=== PATIENT | male | born 1960 | race Caucasian/White ===

== ENCOUNTER 2025-05-24 12:30 | Inpatient (IN) | payer MEDICAID, OTHER ==
[~2025-05-24] VITALS: Ht 185.4 cm; Wt 103.0 kg
--- NOTE | 2025-05-24 12:51 | ECG ---
[facility] Test Date: 2025-05-24 Test Time: 12:44:55 Pat Name: KOKO LAGOS Department: ED Room: 0217T Gender: M Car Repossessor: MYLES : 1960 Requested By: COOKIE SAM Order Number: [id number] Reading MD: Juan Prater Measurements Intervals Mcdonald Rate: 105 P: 42 WI: 129 QRS: -15 QRSD: 111 T: 109 QT: 364 QTc: 482 Interpretive Statements Sinus tachycardia Multiple ventricular premature complexes Sinus pause Probable left atrial enlargement Borderline left axis deviation Nonspecific T abnormalities, lateral leads Borderline prolonged QT interval Electronically Signed On 05-27-2025 13:23:19 PDT by Juan Prater Please click the below link to view image of tracing.
--- NOTE | 2025-05-24 13:19 | DVH ---
CHEST RADIOGRAPH Indication: sob Technique: Single frontal view of the chest was obtained COMPARISON: None FINDINGS: Lines and Tubes: None Lungs: Congestion Pleura: No effusion. No pneumothorax. Cardiomediastinal contours: Unremarkable Bones: Unremarkable IMPRESSION: Increased interstital prominence. This may represent pulmonary vascular congestion and/or viral pneum onia. Clinical correlation advised.
--- NOTE | 2025-05-24 13:22 | ED.PDOC ---
History of Present Illness HPI Comments 65-year-old male presents to the ER with no prior medical history associated with a chief complaint of shortness a breath. Patient reports on having worsening shortness a breath for the past two weeks associated with a syncopal episode and falls with abrasions on the bilateral arms and forehead. Denies chi lls, fever, N/V/D, CP. No other associated symptoms, modifiers, recent injuries or sick contacts present at this time. Chief Complaint: Shortness of Breath Time Seen by MD: 13:00 Primary Care Provider: DEMOND Reviewed Notes: Nurses Notes, Medications, Allergies Allergies: Coded Allergies: NO KNOWN ALLERGIES (Unverified , 08/26/15) Information Source: Patient Mode of Arrival: Ambulatory Severity: Moderate Timing: Weeks Duration: Since onset Prehospital treatment: None Past Medical History PAST MEDICAL HISTORY: Denies Surgical History: Denies all surgeries Family History Family History: Reviewed,noncontributory to illness, Unknown Social History Smoker: Non-Smoker Alcohol: Denies ETOH Use Drugs: Denies Drug Use Lives In: Home Constitutional: denies: chills, diaphoresis, fatigue, fever, malaise, sweats, weakness, others EENTM: denies: blurred vision, double vision, ear bleeding, ear discharge, ear drainage, ear pain, ear ringing, eye pain, eye redness, hearing loss, mouth pain, mouth swelling, nasal discharge, nose bleeding, nose congestion, nose pain, photophobia, tearing, throat pain, throat swelling, voice changes, others Respiratory: reports: shortness of breath; denies: cough, hemoptysis, orthopnea, SOB at rest, SOB with excertion, stridor, wheezing, others Cardiovascular: denies: chest pain, dizzy spells, diaphoresis, Dyspnea on exertion, edema, irregular heart beat, left arm pain, lightheadedness, palpitations, PND, syncope, others Gastrointestinal: denies: abdomen distended, abdominal pain, blood streaked bowels, constipated, diarrhea, dysphagia, difficulty swallowing, hematemesis, melena, nausea, poor appetite, poor fluid intake, rectal bleeding, rectal pain, vomiting, others Genitourinary: denies: burning, dysuria, flank pain, frequency, hematuria, incontinence, penile discharge, penile sore, pain, testicle pain, testicle swelling, urgency, others Neurological: denies: dizziness, fainting, headache, left sided numbness, left sided weakness, numbness, paresthesia, pre-existing deficit, right sided numbness, right sided weakness, seizure, speech problems, tingling, tremors, weakness, others Musculoskeletal: denies: back pain, gout, joint pain, joint swelling, muscle pain, muscle stiffness, neck pain, others Integumetry: denies: bruises, change in color, change in hair/nails, dryness, laceration, lesions, lumps, rash, wounds, others Allergic/Immunocompromised: denies: Difficulty Healing, Frequent Infections, Hives, Itching, others Hematologic/Lymphatic: denies: anemia, blood clots, easy bleeding, easy bruising, swollen glands, others Endocrine: denies: excessive hunger, excessive sweating, excessive thirst, excessive urination, flushing, intolerance to cold, intolerance to heat, unexplained weight gain, unexplained weight loss, others Psychiatric: denies: anxiety, bipolar disorder, depression, hopeless, panic disorder, schizophrenia, sleepless, suicidal, others All Other Systems: Reviewed and Negative Physical Exam General Appearance: No Apparent Distress, Normal HEENT: Normal ENT Inspection, Pharynx Normal, TMs Normal Neck: Full Range of Motion, Non-Tender, Normal, Normal Inspection Respiratory: Chest Non-Tender, Lungs Clear, No Accessory Muscle Use, No Respiratory Distress, Normal Breath Sounds Cardiovascular: No Edema, No JVD, No Murmur, No Gallop, Normal Peripheral Pulses, Regular Rate/Rhythm Breast Exam: Deferred Gastrointestinal: No Organomegaly, Non Tender, No Pulsatile Mass, Normal Bowel Sounds, Soft Genitalia: Deferred Pelvic: Deferred Rectal: Deferred Extremities: No calf tenderness, Normal capillary refill, Normal inspection, Normal range of motion, Non-tender, No pedal edema Musculoskeletal : Apperance: Normal Neurologic: Alert, global sourcing manager II-XII nml as Tested, No Motor Deficits, Normal Affect, Normal Mood, No Sensory Deficits Cerebellar Function: Normal Reflexes: Normal Skin: Dry, Normal Color, Warm Lymphatic: No Adenopathy Was a procedure done? Was a procedure done?: No X-Ray, Labs, Meds, VS Vital Signs Date Time Temp Pulse Resp B/P (MAP) Pulse Ox O2 Delivery O2 Flow Rate FiO2 05/24/25 12:34 98.2 67 24 180/99 90 98.2 Lab Test 05/24/25 12:55 Range/Units White Blood Count Pending Red Blood Count Pending Hemoglobin Pending Hematocrit Pending Mean Corpuscular Volume Pending Mean Corpuscular Hemoglobin Pending Mean Corpuscular Hemoglobin Concent Pending Red Cell Distribution Width Pending Platelet Count Pending Mean Platelet Volume Pending Neutrophils (%) (Auto) Pending Lymphocytes (%) (Auto) Pending Monocytes (%) (Auto) Pending Basophils (%) (Auto) Pending Neutrophils # (Auto) Pending Lymphocytes # (Auto) Pending Monocytes # (Auto) Pending Sodium Level Pending Potassium Level Pending Chloride Level Pending Carbon Dioxide Level Pending Anion Gap Pending Blood Urea Nitrogen Pending Creatinine Pending Glomerular Filtration Rate Calc Pending BUN/Creatinine Ratio Pending Serum Glucose Pending Calcium Level Pending Troponin I High Sensitivity Pending B-Type Natriuretic Peptide Pending Time of 1ST Reevaluation: 13:30 Reevaluation 1ST: Unchanged Patient Education/Counseling: Diagnosis, Treatment, Prognosis Family Education/Counseling: No Family Present SEPSIS Sepsis Screen Date sepsis recognized/suspect: May 24, 2025 Time Sepsis recognized/suspect: 8 Recent Procedure: No On Antibiotic Therapy: No Respiratory Rate >20: Yes Heart Rate >90: No Temp<36 C (96.8 F) or >38.3 C: No SBP <90 or MAP <65 mmHG: No New Acute Mental Status Change: No Is the patient on CPAP, BIPAP,: No Physician Orders Basic Metabolic Panel (05/24/25 12:42) B-Type Natriuretic Peptide (05/24/25 12:42) Complete Blood Count (05/24/25 12:42) Troponin-I Hs (05/24/25 12:42) Chest Portable (05/24/25 12:42) Troponin-I Hs (05/24/25 13:42) Troponin-I Hs (05/24/25 15:42) Vital Signs Date Time Temp Pulse Resp B/P (MAP) Pulse Ox O2 Delivery O2 Flow Rate FiO2 05/24/25 12:34 98.2 67 24 180/99 90 98.2 Laboratory Tests Test 05/24/25 12:55 White Blood Count Pending Critical Care Note Critical Care Time?: No Stability Stability form required: No I personally scribed for COOKIE SAM MD ([email or web address]) on 05/24/25 at 13:22. Electronically submitted by Nathan Nicole ([email or web address]). COOKIE SAM MD May 24, 2025 13:22
[2025-05-24 13:24] LABS: Hematocrit 46.1 % (41.0-53.0); Hemoglobin 15.2 g/dL (13.5-17.5); Mean Corpuscular Hemoglobin 31.4 pg (28.0-32.0); Mean Corpuscular Volume 95.3 fL (80.0-100.0); Nucleated Red Blood Cells % 0.2 %
[2025-05-24 13:31] LABS: Chloride 100 mmol/L (98-107); Potassium 4.4 mmol/L (3.5-5.1); Sodium 138 mmol/L (136-145)
[2025-05-24 13:32] LABS: Anion Gap 8 (5-15); Calcium 9.1 mg/dL (8.7-10.4); Carbon Dioxide 30 mmol/L (20-31)
[2025-05-24 13:37] LABS: BUN/Creatinine Ratio 15.5 (10.0-20.0); Blood Urea Nitrogen 17 mg/dL (9-23); Glucose 122 mg/dL (74-106)
[2025-05-24] MEDS: ACETAMINOPHEN 325 MG TAB PO ONE (14:45)
[2025-05-24] MEDS: HYDROcodone-ACET 10/325MG TAB PO ONE (15:09)
[2025-05-24] MEDS: FUROSEMIDE 40 MG/4 ML VIAL IV ONE (19:24)
[2025-05-24 19:32] VITALS: PULSE 77; RESP 17; O2SAT 94
[2025-05-24] MEDS ORDERED: ONDANSETRON HCL 4 MG/2 ML VIAL IV PRN (22:45)
[2025-05-25] VITALS (11 sets, daily range): BP systolic 132–164; BP diastolic 88–129; PULSE 80–101; RESP 16–22; TEMP 91–98.1; O2SAT 93–99
[2025-05-25] MEDS ORDERED: VANCOMYCIN PER PHARMACY 0 MG IV SCH (02:45)
[2025-05-25] MEDS: CEFEPIME 2GM/50ML NS 50 ML IV SCH (02:45)
[2025-05-25 03:18] LABS: Chloride 100 mmol/L (98-107); Potassium 3.5 mmol/L (3.5-5.1); Sodium 139 mmol/L (136-145)
[2025-05-25 03:19] LABS: Anion Gap 9 (5-15); Carbon Dioxide 30 mmol/L (20-31)
[2025-05-25 03:24] LABS: BUN/Creatinine Ratio 15.2 (10.0-20.0); Blood Urea Nitrogen 17 mg/dL (9-23)
[2025-05-25 03:26] LABS: Hematocrit 46.6 % (41.0-53.0); Hemoglobin 15.8 g/dL (13.5-17.5); Mean Corpuscular Hemoglobin 32.2 pg (28.0-32.0); Mean Corpuscular Volume 95.1 fL (80.0-100.0); Nucleated Red Blood Cells % 0.1 %
[2025-05-25] MEDS: VANCOMYCIN 1GM/250ML IV SCH (03:26)
[2025-05-25 03:32] LABS: Calcium 8.6 mg/dL (8.7-10.4); Glucose 144 mg/dL (74-106)
[2025-05-25] MEDS ORDERED: ATORVASTATIN 20 MG TAB PO ONE (12:15)
--- NOTE | 2025-05-25 12:30 | DVHHPRES ---
History of Present Illness Resident Creating Document: [facility] RESIDENT History of Present Illness History of Present Illness (HPI): David Mondragon, a 65-year-old male with a known past medical history of hypertension, type 2 diabetes mellitus, stage IV oral cancer, and congestive heart failure, presented to the emergency department with a chief complaint of worsening shortness of breath. He denied any associated symptoms such as chills, fever, nausea, vomiting, diarrhea, or chest pain, and reported no recent injuries or sick contacts. Five days prior to admission, his shortness of breath intensified, particularly during physical exertion at work, and he noted difficulty sleeping due to the severity of his symptoms. Three days before arriving at the hospital, he fell in the bathroom, sustaining multiple contusions to his legs, arms, and face. Past Medical History (PMH): hypertension, type 2 diabetes mellitus, stage IV oral cancer, and congestive heart failure Past Surgical History (PSH): Knee replacement 3 years ago OBGYN Hx in Females: Nonrelevant Family history (FH): Patient does not know his family history EtOH: Occasional alcohol use Smoking /Vapin pack year smoking history Recreational Drugs: Occasional marijuana use Residence: Lives with Home Medications: No home medications Allergies: No known allergies PCP: No PCP Specialist relevant to admission: Nonrelevant Review of Systems Review of Systems General: patient denies fever, fatigue, weaknes, sweating, any recent changes in appetite and weight HEENT: No headaches, visiual changes, hearing loss, tinnitus, nasal congestion and discharge, and sore throat. Cardiovascular: Denies chest pain, palpitations, or claudication. Complains of dyspnea on exertion Respiratory: No cough, and wheezing. Gastrointestinal: Denies nausea, vomiting, dysphagia, odynophagia, heartburn, abdominal pain, flatulence, bloating, diarrhea, constipation, change in stool, or blood in stool. Genitourinary: No dysuria, hematuria, discharge, frequency, urgency, nocturia, incontinence, and urinary retention. Endocrine: No heat or cold intolerance, polydipsia, polyuria, and polyphagia. Neurological: No dizziness, extremity weakness and numbness, tremors, gait disturbance, seizures, and memory impairment. Psychiatric: Denies depression, anxiety,or insomnia. Musculoskeletal: Denies neck pain, stiffness and swelling, back pain, muscle weakness, joint pain, stiffness, swelling, or limited range of motion. Skin: No rashes, itching, skin lesion, changes in hair, nail, skin texture and breast. Hematologic/Lymphatic: Denies easy bruising, bleeding tendencies, or lymph node enlargement. Allergies: Coded Allergies: NO KNOWN ALLERGIES (Unverified , 08/26/15) Medications Current Medications Medications Dose Ordered Sig/Rosa Route Start Time Stop Time Status Last Admin Dose Admin Acetaminophen 325 mg Q4HP PRN PO 05/24/25 22:45 Ondansetron HCl 4 mg Q4HP PRN IV 05/24/25 22:45 Exam Vital Signs Vital Signs Date Time Temp Pulse Resp B/P (MAP) Pulse Ox O2 Delivery O2 Flow Rate FiO2 05/25/25 00:02 97.7 82 16 148/112 (124) 94 97.7 05/24/25 19:35 Room Air* 0 21 Exam General Appearance: Alert, Oriented X3, Cooperative, No acute distress HEENT: Atraumatic, PERRLA, EOMI, Mucous membrane moist/pink Respiratory: Wheezing present, Normal air movement Cardiovascular: Regular rate, Normal S1, Normal S2, No murmurs, no chest wall tenderness Abdominal: Normal bowel sounds, Soft, No tenderness, No hepatospenomegaly, No masses Extremities: No clubbing, No cyanosis, No edema, Normal pulses, No tenderness/swelling Skin: No rashes, No breakdown, No significant lesion Neuro: Normal gait, Normal speech, Strength at 5/5 X4 ext, Normal tone, Sensation intact, Cranial nerves 3-12 NL, Reflexes 2+ Psych/Mental Status: Mental status NL, Mood NL Labs/Xrays Labs Test 05/25/25 02:32 05/24/25 16:04 05/24/25 12:55 Range/Units Troponin I High Sensitivity 83 *H </=54 ng/L Eosinophils (%) (Auto) 0.0 0.0-7.0 % Eosinophils # (Auto) 0 0-0.8 10 ^3/uL Basophils # (Auto) 0 0-0.2 10 ^3/uL Nucleated Red Blood Cells 0.2 % B-Type Natriuretic Peptide 1804.22 0-100 pg/mL SEPSIS Sepsis Screen Date sepsis recognized/suspect: May 24, 2025 Time Sepsis recognized/suspect: 1934 Recent Procedure: No On Antibiotic Therapy: No Respiratory Rate >20: No Heart Rate >90: No Temp<36 C (96.8 F) or >38.3 C: No SBP <90 or MAP <65 mmHG: No New Acute Mental Status Change: No Is the patient on CPAP, BIPAP,: No Physician Orders Admit (05/24/25 22:32) Allergies (05/24/25 22:32) Code Status (05/24/25 22:32) Acetaminophen Tablet (Tylenol Tablet) (05/24/25 22:45) Ondansetron Hcl (Zofran) (05/24/25 22:45) Fall Risk Precautions In Place QSHIFT (05/24/25 22:32) Cardiac Diet-2gna,Lofat,Lochol (05/25/25 Breakfast) Condition: Fair (05/24/25 22:32) Bedside Commode (05/24/25 22:32) Urinalysis (05/25/25 02:01) Respiratory Culture W/ Gs (05/25/25 02:01) Complete Blood Count (05/25/25 02:01) Basic Metabolic Panel (05/25/25 02:01) Vancomycin Per Pharmacy (05/25/25 02:45) Cefepime 2gm Extended Infusion (05/25/25 02:45) Vital Signs Date Time Temp Pulse Resp B/P (MAP) Pulse Ox O2 Delivery O2 Flow Rate FiO2 05/25/25 00:02 97.7 82 16 148/112 (124) 94 97.7 05/24/25 19:35 91 Room Air* 0 21 05/24/25 19:32 77 17 94 Room Air* 0 21 05/24/25 19:24 146/80 05/24/25 19:23 98.2 90 18 146/81 (102) 96 98.2 Laboratory Tests Test 05/25/25 02:32 White Blood Count Pending Medications Medications Dose Ordered Sig/Rosa Route Start Time Stop Time Status Last Admin Dose Admin Furosemide 40 mg ONCE ONCE IV 05/24/25 17:30 05/24/25 18:23 DC 05/24/25 19:24 40 MG Assessment/Plan Assessment/Plan #acute hypoxic respiratory failure: Likely due to above, further workup with sputum culture, COVID/ influenza to #hypertensive urgency : Presented with 180/90, started the patient on nifedipine blood pressure is improving, check for HGB A1c, target blood pressure 140/90 as per aha/ ACC guidelines. 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 close input output, IV Lasix to continue for now, salt and fluid restriction, start GDM T as tolerated. cardiomegaly Noted in CXR. #Electrolyte imbalance with Multiple PVCs: Continue the patient on telemetry, check for electrolytes, keep on telemetry, where QTC prolongation medication avoidpirin torvastatin. #Possible COPD: As needed albuterol inhaler PCP: No PCP established, discharge follow up with the discharge Clinic, Barriers to discharge: Active workup and management glucagon Case discussed with Dr. Melendrez. Code status: Full code. Complex patient care discussion needed total 39 minutes. Plan discussed with: Patient My Orders Orders - [facility] BEL[facility] RESIDENT Procedure Category Date Status Time Admit ADMIT 05/24/25 Transmitted 22:32 Allergies MOHINDER 05/24/25 In Process 22:32 Code Status CODE 05/24/25 Transmitted 22:32 Acetaminophen Tablet PHA 05/24/25 In Process (Tylenol Tablet) 22:45 Ondansetron Hcl PHA 05/24/25 In Process (Zofran) 22:45 Fall Risk Precautions MOHINDER 05/24/[address] 22:32 Cardiac DIET 05/25/25 Transmitted Diet-2gna,Lofat,Lochol Breakfast Condition: Fair MOHINDER 05/24/25 In Process 22:32 Bedside Commode MOHINDER 05/24/25 In Process 22:32 Urinalysis LAB 05/25/25 Logged 02:01 Respiratory Culture TAMICA 05/25/25 Logged W/ Gs 02:01 Complete Blood Count LAB 05/25/25 In Process 02:01 Basic Metabolic Panel LAB 05/25/25 In Process 02:01 Vancomycin Per PHA 05/25/25 Logged Pharmacy 02:45 Cefepime 2gm Extended PHA 05/25/25 Transmitted Infusion 02:45 Date of Service: May 24, 2025 Billing Provider: SKIP MELENDREZ MD Common Visit Codes: [id number] INP/OBS CARE (HIGH) Secondary Visit Codes: [id number] CARE PLAN 30 MINUTES MER[facility] BELTR[facility]N RESIDENT May 25, 2025 02:45 SATISH ZAMBRANO RESIDENT May 25, 2025 12:30
[2025-05-25] MEDS: LORazepam 0.5 MG TAB PO PRN (13:10)
[2025-05-25] MEDS: FUROSEMIDE 40 MG/4 ML VIAL IV ONE (13:11)
[2025-05-25] MEDS ORDERED: hydrALAZINE HCL 20 MG/ML VL IV PRN (13:45)
[2025-05-25 14:51] LABS: Urine Protein, UAD Negative (Negative)
[2025-05-25 14:58] LABS: Amphetamine Screen, Urine Neg (NEGATIVE); Cannabinoid Screen, Urine Pos (NEGATIVE); Opiate Scree,Urine Neg (NEGATIVE)
[2025-05-25 15:00] LABS: Barbiturate Scree,Urine Neg (NEGATIVE); Benzodiazephine Screen, Urine Neg (NEGATIVE); Cocaine Screen, Urine Neg (NEGATIVE); Phencyclidine Screen, Urine Neg (NEGATIVE)
--- NOTE | 2025-05-25 15:32 | DVHPN2 ---
Subjective The patient is seen and examined at bedside. The patient is still complain of shortness for breath. at bedside. She worry about his leg swollen and red , also, the leg look darker/black collar Reviewed: Care Plan, H&P, Labs, Medications, Previous Orders, Radiology Changes from previous H/P or p: No Changes Objective Vitals Vital Signs Date Time Temp Pulse Resp B/P (MAP) Pulse Ox O2 Delivery O2 Flow Rate FiO2 05/25/25 13:11 164/129 05/25/25 12:30 97.8 91 22 99 97.8 05/25/25 06:05 Nasal Cannula* 2 28 General Appearance: Alert, No acute distress HEENT: Atraumatic, PERRLA, EOMI, Mucous membr. moist/pink Neck: Supple Lungs: Clear to auscultation, Normal air movement Cardiovascular: Regular rate, Normal S1, Normal S2, No murmurs, Gallops, Rubs Abdomen: Normal bowel sounds, Soft, No tenderness Neuro: Cranial nerves 3-12 NL Psych/Mental Status: Mental status NL Medications Current Medications Medications Dose Ordered Sig/Rosa Route Start Time Stop Time Status Last Admin Dose Admin Acetaminophen 325 mg Q4HP PRN PO 05/24/25 22:45 Ondansetron HCl 4 mg Q4HP PRN IV 05/24/25 22:45 Vancomycin HCl 0 ml @ 0 mls/hr UD IV 05/25/25 02:45 Cefepime HCl 50 ml @ 12.5 mls/hr Q8HR IV 05/25/25 02:45 05/25/25 13:13 12.5 MLS/HR Aspirin 81 mg DAILY PO 05/26/25 10:00 Atorvastatin Calcium 40 mg HS PO 05/25/25 22:00 Albuterol 2.5 mg Q6HPRN PRN NEB 05/25/25 12:15 Furosemide 40 mg DAILY IV 05/26/25 10:00 Lorazepam 1 mg Q4HPRN PRN PO 05/25/25 13:00 05/25/25 13:10 1 MG Hydralazine HCl 10 mg Q8HPRN PRN IV 05/25/25 13:45 Laboratory Results Laboratory Tests 05/25/25 02:32 Chemistry Test 05/25/25 02:32 Calcium Level 8.6 mg/dL (8.7-10.4) L Urinalysis Test 05/25/25 14:03 Urine Color Light-yellow (Yellow) Urine Clarity Clear (Clear) Urine pH 6.0 (5.0-9.0) Urine Specific [place] 1.014 (1.001-1.035) Urine Protein Negative (Negative) Urine Ketones Negative (Negative) Urine Blood Negative /uL (Negative) Urine Nitrite Negative (Negative) Urine Bilirubin Negative (Negative) Urine Urobilinogen Normal mg/dL (Negative) Urine Leukocyte Esterase Negative /uL (Negative) Urine RBC <1 /hpf (0 - 3) Urine Microscopic WBC < 1 /HPF (0-3) Urine Squamous Epithelial Cells None seen /hpf (<5) Urine Bacteria None seen /hpf (None Seen) Urine Glucose Normal mg/dL (Normal) Labs and/or images reviewed: Labs reviewed by me Assessment/Plan Assessment/Plan #acute hypoxic respiratory failure: Due to congestive heart failure #hypertensive urgency : Presented with 180/90, started the patient on nifedipine blood pressure is improving, check for HGB A1c, target blood pressure 140/90 as per aha/ ACC guidelines. 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 Waiting for echo to be done, IV Lasix to continue for now, salt and fluid restriction, start GDM T as tolerated. cardiomegaly Noted in CXR. #Electrolyte imbalance with Multiple PVCs: Continue the patient on telemetry, check for electrolytes, keep on telemetry, where QTC prolongation medication avoidpirin torvastatin. #Possible COPD: As needed albuterol inhaler Continuing current management. I am going to order an ultrasound artery and venous to rule out stenosis or DVT. Continuing with IV Lasix Replace electrolytes as needed Plan discussed with: Patient, Spouse My Orders Orders - MARIAJOSE MORA MD Procedure Category Date Status Time Lorazepam Tablet PHA 05/25/25 In Process (Ativan Tablet) 13:00 Hydralazine Injection PHA 05/25/25 In Process (Apresoline Inject 13:45 Date of Service: May 25, 2025 Billing Provider: MARIAJOSE MORA MD Common Visit Codes: [id number] INP/OBS CARE(HIGH) MARIAJOSE MORA MD May 25, 2025 15:32
--- NOTE | 2025-05-25 19:14 | DVH ---
CLINICAL HISTORY: Discoloration to BLE TECHNIQUE: Color and duplex doppler imaging of the bilateral lower extremity veins was performed. Ves chase compression if possible was also performed. WID: COMPARISON: US BILAT LOW EXT ART DUPLEX on DOS: 05/25/25 FINDINGS: Right Lower Extremity: Right common femoral vein: Normal compressibility and flow. Right femoral vein: Normal compressibility and flow. Right popliteal vein: Normal compressibility and flow. Proximal calf veins are normally compressible. Left Lower Extremity: Left common femoral vein: Normal compressibility and flow. Left femoral vein: Normal compressibility and flow. Left popliteal vein: Normal compressibility and flow. Proximal calf veins are normally compressible. Subcutaneous edema in the bilateral lower extremities. IMPRESSION: 1. NO SONOGRAPHIC EVIDENCE FOR DEEP VENOUS THROMBOSIS IN THE BILATERAL LOWER EXTREMITY VEINS. 2. Subcutaneous edema in the bilateral lower extremities.
--- NOTE | 2025-05-25 20:39 | DVH ---
BILATERAL Lower Extremity Arterial Duplex Date: 05/25/2025 06:32 PM Clinical History: Discoloration to BLE Comparison: US BILAT LOWER DVT on DOS: 05/25/25 Technique: Duplex Doppler evaluation including color Doppler and spectral/pulsed waveform analysis of the lower extremity arteries was performed. Finding: RIGHT: Peak systolic velocities are as follows: [facility] NURSE 116 cm/s Deep femoral 60 cm/s SFA proximal 81 cm/s SFA mid-portion 60 cm/s SFA distal 49 cm/s Popliteal 42 cm/s Posterior tibial 32 cm/s Anterior tibial 34 cm/s Dorsalis pedis 48 cm/s The waveforms are triphasic waveform throughout. LEFT: Peak systolic velocities are as follows: PEDIATRIC ACUTE CARE UNIT NURSE 72 cm/s Deep femoral 42 cm/s SFA proximal 64 cm/s SFA mid-portion 62 cm/s SFA distal 72 cm/s Popliteal 54 cm/s Posterior tibial 40 cm/s Anterior tibial 27 cm/s Dorsalis pedis 27 cm/s The waveforms are triphasic waveform throughout with biphasic waveform femoral profunda. REFERENCE VALUES, [facility]) vascular Imaging Lab Criteria: Peak systolic velocity ranges (in cm/sec) are as follows: <150 cm/s - <20 % stenosis 150-200 cm/s - 20-49% stenosis 200-300 cm/s - 50-75% stenosis >300 cm/s -> 75% stenosis IMPRESSION: 1. There is no evidence for peripheral vascular insufficiency in the right lower extremity. 2. There is no evidence for peripheral vascular insufficiency in the left lower extremity. 3. No significant focal stenosis is identified.
[2025-05-25 20:43] LABS: Iron 36.0 ug/dL (65-175); Total Iron Binding Capacity 404.0 ug/dL (250-425)
[2025-05-25] MEDS: ATORVASTATIN 20 MG TAB PO SCH (21:55)
[2025-05-26] VITALS (16 sets, daily range): BP systolic 109–148; BP diastolic 69–108; PULSE 65–95; RESP 17–24; TEMP 97.9–98.8; O2SAT 88–98
[2025-05-26 04:05] LABS: COVID19 ANTIGEN SOFIA FIA NEGATIVE (NEGATIVE)
[2025-05-26] MEDS: ALBUTEROL SULF 2.5 MG/0.5ML(0.5%) NEB SOLN NEB PRN (04:24)
[2025-05-26] MEDS: FUROSEMIDE 40 MG/4 ML VIAL IV ONE (05:29)
[2025-05-26 05:36] LABS: Base Excess 5.2 mmol/L (-2.0-3.0)
[2025-05-26 08:25] LABS: Base Excess 5.7 mmol/L (-2.0-3.0)
--- NOTE | 2025-05-26 11:18 | DVHPN2 ---
Subjective The patient is seen and examined at bedside. The patient is still complain of shortness for breath. at bedside. She worry about his leg swollen and red , also, the leg look darker/black collar Reviewed: Care Plan, H&P, Labs, Medications, Previous Orders, Radiology Changes from previous H/P or p: No Changes Objective Vitals Vital Signs Date Time Temp Pulse Resp B/P (MAP) Pulse Ox O2 Delivery O2 Flow Rate FiO2 05/26/25 09:30 98.2 81 18 146/94 (111) 95 98.2 05/26/25 08:00 Bi-Pap+ 40 40 05/26/25 04:24 4 Intake/Output Intake and Output 05/26/25 07:00 Intake Total 950 ml Output Total 675 ml Balance 275 ml Intake Oral 850 ml IV Total 100 ml Output Urine Total 675 ml # Voids 2 General Appearance: Alert, No acute distress HEENT: Atraumatic, PERRLA, EOMI, Mucous membr. moist/pink Neck: Supple Lungs: Clear to auscultation, Normal air movement Cardiovascular: Regular rate, Normal S1, Normal S2, No murmurs, Gallops, Rubs Abdomen: Normal bowel sounds, Soft, No tenderness Neuro: Cranial nerves 3-12 NL Psych/Mental Status: Mental status NL Medications Current Medications Medications Dose Ordered Sig/Rosa Route Start Time Stop Time Status Last Admin Dose Admin Acetaminophen 325 mg Q4HP PRN PO 05/24/25 22:45 Ondansetron HCl 4 mg Q4HP PRN IV 05/24/25 22:45 Vancomycin HCl 0 ml @ 0 mls/hr UD IV 05/25/25 02:45 Cefepime HCl 50 ml @ 12.5 mls/hr Q8HR IV 05/25/25 02:45 05/26/25 05:59 12.5 MLS/HR Aspirin 81 mg DAILY PO 05/26/25 10:00 Atorvastatin Calcium 40 mg HS PO 05/25/25 22:00 05/25/25 21:55 40 MG Albuterol 2.5 mg Q6HPRN PRN NEB 05/25/25 12:15 05/26/25 04:24 2.5 MG Furosemide 40 mg DAILY IV 05/26/25 10:00 Lorazepam 1 mg Q4HPRN PRN PO 05/25/25 13:00 05/25/25 21:08 1 MG Hydralazine HCl 10 mg Q8HPRN PRN IV 05/25/25 13:45 Laboratory Results Laboratory Tests 05/25/25 02:32 Urinalysis Test 05/25/25 14:03 Urine Color Light-yellow (Yellow) Urine Clarity Clear (Clear) Urine pH 6.0 (5.0-9.0) Urine Specific [place] 1.014 (1.001-1.035) Urine Protein Negative (Negative) Urine Ketones Negative (Negative) Urine Blood Negative /uL (Negative) Urine Nitrite Negative (Negative) Urine Bilirubin Negative (Negative) Urine Urobilinogen Normal mg/dL (Negative) Urine Leukocyte Esterase Negative /uL (Negative) Urine RBC <1 /hpf (0 - 3) Urine Microscopic WBC < 1 /HPF (0-3) Urine Squamous Epithelial Cells None seen /hpf (<5) Urine Bacteria None seen /hpf (None Seen) Urine Glucose Normal mg/dL (Normal) Blood Gas Results Test 05/26/25 05:24 05/26/25 08:06 Arterial Blood pH 7.329 (7.350-7.450) 7.354 (7.350-7.450) FiO2 % 48.0 40.0 Microbiology Microbiology Date/Time Source Procedure Growth Status 05/25/25 08:47 Sputum Gram Stain Pending Resulted 05/25/25 08:47 Sputum Respiratory Culture - Preliminary Resulted Labs and/or images reviewed: Labs reviewed by me Assessment/Plan Assessment/Plan #acute hypoxic respiratory failure: Due to congestive heart failure, patient now on BiPAP #hypertensive urgency : Presented with 180/90, started the patient on nifedipine blood pressure is improving, check for HGB A1c, target blood pressure 140/90 as per aha/ ACC guidelines. 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 Waiting for echo to be done, IV Lasix to continue for now, salt and fluid restriction, start GDM T as tolerated. cardiomegaly Noted in CXR. #Electrolyte imbalance with Multiple PVCs: Continue the patient on telemetry, check for electrolytes, keep on telemetry, where QTC prolongation medication avoidpirin torvastatin. #Possible COPD: As needed albuterol inhaler Continuing current management. Ultrasound artery and venous negative for DVT or stenosis. Continuing with IV Lasix Replace electrolytes as needed This medical document was created using an electronic medical record system with [employer] computerized dictation system. Although this document has been carefully reviewed, there may still be some phonetic and typographical errors. These areas are purely typographical due to imperfections of the software programs, and do not reflect any compromise in the patient's medical care. Plan discussed with: Patient My Orders Orders - MARIAJOSE MORA MD Procedure Category Date Status Time Lorazepam Tablet PHA 05/25/25 In Process (Ativan Tablet) 13:00 Hydralazine Injection PHA 05/25/25 In Process (Apresoline Inject 13:45 * Cardiology Consult CONS 05/25/25 Transmitted 17:02 Bilat Low Ext Art US 05/25/25 Resulted Duplex 17:02 Bilat Lower Dvt US 05/25/25 Resulted 17:02 Date of Service: May 26, 2025 Billing Provider: MARIAJOSE MORA MD Common Visit Codes: [id number] INP/OBS CARE(HIGH) MARIAJOSE MORA MD May 26, 2025 11:18
[2025-05-26] MEDS: FUROSEMIDE 40 MG/4 ML VIAL IV SCH ×2 (12:00→18:26)
--- NOTE | 2025-05-26 20:01 | DVHSR ---
APPROVED REPORT EXAM: Two-dimensional and M-mode echocardiogram with Doppler and color Doppler. Blood Pressure: 159/93 mmHg INDICATION Rule out structural heart disease RISK FACTORS Obesity: Height: 6'1", Weight: 233 DIMENSIONS LVDd6.4 (3.8-5.7cm)LA (2D)4.5 (1.9-4.0cm)Aortic Root3.7 (2.0-3.7cm) LVDs5.6 (2.5-4.0cm)LA (MM) (1.9-4.0cm)Aortic Cusp Exc2.0 (1.5-2.0cm) EF (%) 25.0 (55-70%)Rt. Atrium5.2 (1.9-4.0cm)Asc. Aorta cm IVSd1.3 (0.7-1.1cm)RV (D)5.1 (1.8-2.4cm) PWd1.1 (0.7-1.1cm) Mitral Valve MitralMitral Stenosis E wave0.72m/sMV Mean GR.mmHg A wave0.73m/sMV Peak GR.mmHg E/A ratio1.02D MVAcm2 DECEL [id number] 1/2 Timems Aortic Valve Aortic ValveAortic Stenosis V10.82m/Vimal Mean GR.3mmHg V21.09m/Vimal Peak GR.5mmHg LVOT Diameter2.5 (1.8-2.4cm)Doppler AVA3.69cm2 Pulmonic Valve V21.11m/s Other Information Technically limited study due to body habitus, patient position and on bipap. Conclusion DILATED ALL CARDIAC CHAMBERS GLOBAL HYPOKINESIS OF ALL CARDIAC CHAMBERS LV EF IS 25% NORMAL VALVES MODERATE DEGREE MR NO EFFUSION
[2025-05-26] MEDS: VANCOMYCIN 1.75GM/350ML 350 ML IV SCH (21:20)
[2025-05-27] VITALS (15 sets, daily range): BP systolic 109–151; BP diastolic 83–99; PULSE 61–95; RESP 17–22; TEMP 97.5–98.5; O2SAT 90–97
[2025-05-27 06:23] LABS: Chloride 99 mmol/L (98-107); Sodium 142 mmol/L (136-145)
[2025-05-27 06:29] LABS: BUN/Creatinine Ratio 16.0 (10.0-20.0); Blood Urea Nitrogen 16 mg/dL (9-23)
[2025-05-27 06:30] LABS: Anion Gap 7 (5-15); Calcium 8.5 mg/dL (8.7-10.4); Carbon Dioxide 36 mmol/L (20-31); Glucose 114 mg/dL (74-106); Potassium 3.4 mmol/L (3.5-5.1)
[2025-05-27 06:36] LABS: Hematocrit 44.0 % (41.0-53.0); Hemoglobin 15.1 g/dL (13.5-17.5); Mean Corpuscular Hemoglobin 32.5 pg (28.0-32.0); Mean Corpuscular Volume 94.5 fL (80.0-100.0); Nucleated Red Blood Cells % 0.0 %
[2025-05-27] MEDS: ACETAMINOPHEN 325 MG TAB PO PRN (09:41)
--- NOTE | 2025-05-27 12:02 | DVHPN2 ---
Subjective The patient is seen and examined at bedside. The patient feel much better. Lower extremity edema improved. at bedside. Reviewed: Care Plan, H&P, Labs, Medications, Previous Orders, Radiology Changes from previous H/P or p: No Changes Objective Vitals Vital Signs Date Time Temp Pulse Resp B/P (MAP) Pulse Ox O2 Delivery O2 Flow Rate FiO2 05/27/25 07:30 78 92 Facial BiPAP Mask 50 05/27/25 07:20 22 05/27/25 07:14 5.0 05/27/25 06:01 142/81 05/27/25 05:00 98.5 98.5 Intake/Output Intake and Output 05/27/25 07:00 Intake Total 1500 ml Output Total 3100 ml Balance -1600 ml Intake Oral 1450 ml IV Total 50 ml Output Urine Total 3100 ml General Appearance: Alert, No acute distress HEENT: Atraumatic, PERRLA, EOMI, Mucous membr. moist/pink Neck: Supple Lungs: Clear to auscultation, Normal air movement Cardiovascular: Regular rate, Normal S1, Normal S2, No murmurs, Gallops, Rubs Abdomen: Normal bowel sounds, Soft, No tenderness Neuro: Cranial nerves 3-12 NL Psych/Mental Status: Mental status NL Medications Current Medications Medications Dose Ordered Sig/Rosa Route Start Time Stop Time Status Last Admin Dose Admin Acetaminophen 325 mg Q4HP PRN PO 05/24/25 22:45 05/27/25 09:41 325 MG Ondansetron HCl 4 mg Q4HP PRN IV 05/24/25 22:45 Vancomycin HCl 0 ml @ 0 mls/hr UD IV 05/25/25 02:45 Cefepime HCl 50 ml @ 12.5 mls/hr Q8HR IV 05/25/25 02:45 05/27/25 05:59 12.5 MLS/HR Aspirin 81 mg DAILY PO 05/26/25 10:00 05/27/25 09:41 81 MG Atorvastatin Calcium 40 mg HS PO 05/25/25 22:00 05/25/25 21:55 40 MG Albuterol 2.5 mg Q6HPRN PRN NEB 05/25/25 12:15 05/27/25 07:14 2.5 MG Lorazepam 1 mg Q4HPRN PRN PO 05/25/25 13:00 05/26/25 13:45 1 MG Hydralazine HCl 10 mg Q8HPRN PRN IV 05/25/25 13:45 Furosemide 40 mg BIDD IV 05/26/25 18:00 05/27/25 06:01 40 MG Vancomycin HCl 350 ml @ 233.333 mls/hr Q16H IV 05/26/25 20:00 05/26/25 21:20 233.333 MLS/HR Laboratory Results Laboratory Tests 05/27/25 05:30 Chemistry Test 05/27/25 05:30 Calcium Level 8.5 mg/dL (8.7-10.4) L Urinalysis Test 05/25/25 14:03 Urine Color Light-yellow (Yellow) Urine Clarity Clear (Clear) Urine pH 6.0 (5.0-9.0) Urine Specific [place] 1.014 (1.001-1.035) Urine Protein Negative (Negative) Urine Ketones Negative (Negative) Urine Blood Negative /uL (Negative) Urine Nitrite Negative (Negative) Urine Bilirubin Negative (Negative) Urine Urobilinogen Normal mg/dL (Negative) Urine Leukocyte Esterase Negative /uL (Negative) Urine RBC <1 /hpf (0 - 3) Urine Microscopic WBC < 1 /HPF (0-3) Urine Squamous Epithelial Cells None seen /hpf (<5) Urine Bacteria None seen /hpf (None Seen) Urine Glucose Normal mg/dL (Normal) Microbiology Microbiology Date/Time Source Procedure Growth Status 05/25/25 08:47 Sputum Gram Stain Pending Resulted 05/25/25 08:47 Respiratory Culture - Final Escherichia coli Resulted Labs and/or images reviewed: Labs reviewed by me Assessment/Plan Assessment/Plan #acute hypoxic respiratory failure: Due to congestive heart failure, patient now off BiPAP #hypertensive urgency : Presented with 180/90, started the patient on nifedipine blood pressure is improving, check for HGB A1c, target blood pressure 140/90 as per aha/ ACC guidelines. 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 Waiting for echo to be done, IV Lasix to continue for now, salt and fluid restriction, start GDM T as tolerated. cardiomegaly Noted in CXR. #Electrolyte imbalance with Multiple PVCs: Continue the patient on telemetry, check for electrolytes, keep on telemetry, where QTC prolongation medication avoidpirin torvastatin. #Possible COPD: As needed albuterol inhaler Continuing current management. Ultrasound artery and venous negative for DVT or stenosis. Continuing with IV Lasix Replace electrolytes as needed Continuing to encouraged the patient to be out of bed and ambulate if tolerated. This medical document was created using an electronic medical record system with [employer] direct computerized dictation system. Although this document has been carefully reviewed, there may still be some phonetic and typographical errors. These areas are purely typographical due to imperfections of the software programs, and do not reflect any compromise in the patient's medical care. Plan discussed with: Patient, Spouse My Orders Orders - MARIAJOSE MORA MD Procedure Category Date Status Time Furosemide Injection PHA 05/26/25 In Process (Lasix Injection) 18:00 *Consult CONS 05/26/25 Transmitted / 22:34 Date of Service: May 27, 2025 Billing Provider: MARIAJOSE MORA MD Common Visit Codes: [id number] INP/OBS CARE(HIGH) MARIAJOSE MORA MD May 27, 2025 12:02
--- NOTE | 2025-05-27 12:22 | MEDREC ---
[facility] ASP Intervention Section I [facility] ASP Intervention: Deescalate AB based on CS (Please consider de-escalate antibiotics based on culture susceptibility) AMMON MALDONADO [facility] RESIDENT May 27, 2025 12:22
[2025-05-28] VITALS (12 sets, daily range): BP systolic 90–151; BP diastolic 56–92; PULSE 50–95; RESP 16–19; TEMP 97.6–98.2; O2SAT 91–99
[2025-05-28 03:27] LABS: Hematocrit 46.7 % (41.0-53.0); Hemoglobin 15.5 g/dL (13.5-17.5); Mean Corpuscular Hemoglobin 31.7 pg (28.0-32.0); Mean Corpuscular Volume 95.2 fL (80.0-100.0); Nucleated Red Blood Cells % 0.0 %
[2025-05-28 03:38] LABS: Sodium 139 mmol/L (136-145)
[2025-05-28 03:39] LABS: Anion Gap 7 (5-15); Calcium 8.8 mg/dL (8.7-10.4)
[2025-05-28 03:42] LABS: Carbon Dioxide 35 mmol/L (20-31); Chloride 97 mmol/L (98-107); Potassium 3.1 mmol/L (3.5-5.1)
[2025-05-28 03:44] LABS: BUN/Creatinine Ratio 14.3 (10.0-20.0); Blood Urea Nitrogen 13 mg/dL (9-23)
[2025-05-28 03:48] LABS: Glucose 179 mg/dL (74-106)
--- NOTE | 2025-05-28 10:45 | DVHPN2 ---
Subjective The patient is seen and examined at bedside. The patient feel much better. Lower extremity edema improved. at bedside. Reviewed: Care Plan, H&P, Labs, Medications, Previous Orders, Radiology Changes from previous H/P or p: No Changes Objective Vitals Vital Signs Date Time Temp Pulse Resp B/P (MAP) Pulse Ox O2 Delivery O2 Flow Rate FiO2 05/28/25 08:10 Nasal Cannula* 5 40 05/28/25 07:55 77 16 115/69 98 05/28/25 05:00 97.9 97.9 Intake/Output Intake and Output 05/28/25 07:00 Intake Total 2800 ml Output Total 4400 ml Balance -1600 ml Intake Oral 2050 ml IV Total 750 ml Output Urine Total 4400 ml General Appearance: Alert, No acute distress HEENT: Atraumatic, PERRLA, EOMI, Mucous membr. moist/pink Neck: Supple Lungs: Clear to auscultation, Normal air movement Cardiovascular: Regular rate, Normal S1, Normal S2, No murmurs, Gallops, Rubs Abdomen: Normal bowel sounds, Soft, No tenderness Neuro: Cranial nerves 3-12 NL Psych/Mental Status: Mental status NL Medications Current Medications Medications Dose Ordered Sig/Rosa Route Start Time Stop Time Status Last Admin Dose Admin Acetaminophen 325 mg Q4HP PRN PO 05/24/25 22:45 05/28/25 09:42 325 MG Ondansetron HCl 4 mg Q4HP PRN IV 05/24/25 22:45 Vancomycin HCl 0 ml @ 0 mls/hr UD IV 05/25/25 02:45 Cefepime HCl 50 ml @ 12.5 mls/hr Q8HR IV 05/25/25 02:45 05/28/25 06:47 12.5 MLS/HR Aspirin 81 mg DAILY PO 05/26/25 10:00 05/28/25 09:43 81 MG Atorvastatin Calcium 40 mg HS PO 05/25/25 22:00 05/27/25 20:38 40 MG Albuterol 2.5 mg Q6HPRN PRN NEB 05/25/25 12:15 05/27/25 07:14 2.5 MG Lorazepam 1 mg Q4HPRN PRN PO 05/25/25 13:00 05/28/25 01:14 1 MG Hydralazine HCl 10 mg Q8HPRN PRN IV 05/25/25 13:45 Furosemide 40 mg BIDD IV 05/26/25 18:00 05/28/25 06:49 40 MG Vancomycin HCl 350 ml @ 233.333 mls/hr Q16H IV 05/26/25 20:00 05/28/25 04:05 233.333 MLS/HR Sacubitril/ Valsartan 1 tab DAILY PO 05/28/25 10:45 UNV Spironolactone 25 mg DAILY PO 05/28/25 10:45 UNV Laboratory Results Laboratory Tests 05/28/25 02:45 Chemistry Test 05/28/25 02:45 Calcium Level 8.8 mg/dL (8.7-10.4) Urinalysis Test 05/25/25 14:03 Urine Color Light-yellow (Yellow) Urine Clarity Clear (Clear) Urine pH 6.0 (5.0-9.0) Urine Specific [place] 1.014 (1.001-1.035) Urine Protein Negative (Negative) Urine Ketones Negative (Negative) Urine Blood Negative /uL (Negative) Urine Nitrite Negative (Negative) Urine Bilirubin Negative (Negative) Urine Urobilinogen Normal mg/dL (Negative) Urine Leukocyte Esterase Negative /uL (Negative) Urine RBC <1 /hpf (0 - 3) Urine Microscopic WBC < 1 /HPF (0-3) Urine Squamous Epithelial Cells None seen /hpf (<5) Urine Bacteria None seen /hpf (None Seen) Urine Glucose Normal mg/dL (Normal) Microbiology Microbiology Date/Time Source Procedure Growth Status 05/25/25 08:47 Sputum Gram Stain - Final Complete 05/25/25 08:47 Respiratory Culture - Final Escherichia coli Complete Labs and/or images reviewed: Labs reviewed by me Assessment/Plan Assessment/Plan #acute hypoxic respiratory failure: Due to congestive heart failure, patient now off BiPAP #hypertensive urgency : Presented with 180/90, started the patient on nifedipine blood pressure is improving, check for HGB A1c, target blood pressure 140/90 as per aha/ ACC guidelines. 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 Waiting for echo to be done, IV Lasix to continue for now, salt and fluid restriction, start GDM T as tolerated. cardiomegaly Noted in CXR. #Electrolyte imbalance with Multiple PVCs: Continue the patient on telemetry, check for electrolytes, keep on telemetry, where QTC prolongation medication avoidpirin torvastatin. #Possible COPD: As needed albuterol inhaler Continuing current management. Ultrasound artery and venous negative for DVT or stenosis. Continuing with IV Lasix Replace electrolytes as needed Continuing to encouraged the patient to be out of bed and ambulate if tolerated. Echo showed: Dilated cardiac chambers. Global hypokinesis of all cardiac chambers, LV EF is 25%, normal valves, moderate degree mitral regurgitation, no effusion. I will start the patient on Entresto and also was spironolactone. Discussed with patient and at bedside. The patient admitted that he used methamphetamine. And he said he will change his lifestyle now to get better. This medical document was created using an electronic medical record system with [employer] direct computerized dictation system. Although this document has been carefully reviewed, there may still be some phonetic and typographical errors. These areas are purely typographical due to imperfections of the software programs, and do not reflect any compromise in the patient's medical care. Plan discussed with: Patient, Spouse My Orders Orders - MARIAJOSE MORA MD Procedure Category Date Status Time Complete Blood Count LAB 05/29/25 Verified 05:00 Complete Blood Count LAB 05/30/25 Verified 05:00 Complete Blood Count LAB 05/31/25 Verified 05:00 Complete Blood Count LAB 06/01/25 Verified 05:00 Basic Metabolic Panel LAB 05/29/25 Verified 05:00 Basic Metabolic Panel LAB 05/30/25 Verified 05:00 Basic Metabolic Panel LAB 05/31/25 Verified 05:00 Basic Metabolic Panel LAB 06/01/25 Verified 05:00 Sacubitril-Valsartan PHA 05/28/25 Logged (Entresto 24-26 Mg 10:45 Spironolactone PHA 05/28/25 Logged (Aldactone) 10:45 Date of Service: May 28, 2025 Billing Provider: MARIAJOSE MORA MD Common Visit Codes: [id number] INP/OBS CARE(HIGH) MARIAJOSE MORA MD May 28, 2025 10:45
[2025-05-28] MEDS: SACUBITRIL-VALSARTAN 24mg/26mg TAB PO SCH (12:05)
[2025-05-28] MEDS: SPIRONOLACTONE 25 MG TAB PO SCH (12:05)
[2025-05-29] VITALS (13 sets, daily range): BP systolic 105–138; BP diastolic 70–87; PULSE 60–101; RESP 16–22; TEMP 36.5; O2SAT 91–98
[2025-05-29 06:30] LABS: Hematocrit 49.6 % (41.0-53.0); Hemoglobin 16.6 g/dL (13.5-17.5); Mean Corpuscular Hemoglobin 31.6 pg (28.0-32.0); Mean Corpuscular Volume 94.7 fL (80.0-100.0); Nucleated Red Blood Cells % 0.0 %
[2025-05-29 06:43] LABS: Sodium 140 mmol/L (136-145)
[2025-05-29 06:44] LABS: Anion Gap 8 (5-15)
[2025-05-29 06:45] LABS: Calcium 9.2 mg/dL (8.7-10.4)
[2025-05-29 06:47] LABS: Carbon Dioxide 35 mmol/L (20-31); Chloride 97 mmol/L (98-107); Potassium 3.4 mmol/L (3.5-5.1)
[2025-05-29 06:49] LABS: BUN/Creatinine Ratio 17.4 (10.0-20.0); Blood Urea Nitrogen 16 mg/dL (9-23)
[2025-05-29 06:50] LABS: Glucose 115 mg/dL (74-106)
[2025-05-29] MEDS: POTASSIUM CHL 20 Meq TABLET PO ONE (07:39)
--- NOTE | 2025-05-29 10:35 | DVHPN2 ---
Subjective The patient is seen and examined at bedside. The patient feel much better. Lower extremity edema improved. at bedside. Reviewed: Care Plan, H&P, Labs, Medications, Previous Orders, Radiology Changes from previous H/P or p: No Changes Objective Vitals Vital Signs Date Time Temp Pulse Resp B/P (MAP) Pulse Ox O2 Delivery O2 Flow Rate FiO2 05/29/25 09:00 97.7 80 16 119/79 (92) 94 97.7 05/29/25 08:10 Nasal Cannula* 5 40 Intake/Output Intake and Output 05/29/25 07:00 Intake Total 1230 ml Output Total 4300 ml Balance -3070 ml Intake Oral 1080 ml IV Total 150 ml Output Urine Total 4300 ml General Appearance: Alert, No acute distress HEENT: Atraumatic, PERRLA, EOMI, Mucous membr. moist/pink Neck: Supple Lungs: Clear to auscultation, Normal air movement Cardiovascular: Regular rate, Normal S1, Normal S2, No murmurs, Gallops, Rubs Abdomen: Normal bowel sounds, Soft, No tenderness Neuro: Cranial nerves 3-12 NL Psych/Mental Status: Mental status NL Medications Current Medications Medications Dose Ordered Sig/Rosa Route Start Time Stop Time Status Last Admin Dose Admin Acetaminophen 325 mg Q4HP PRN PO 05/24/25 22:45 05/28/25 09:42 325 MG Ondansetron HCl 4 mg Q4HP PRN IV 05/24/25 22:45 Vancomycin HCl 0 ml @ 0 mls/hr UD IV 05/25/25 02:45 Cefepime HCl 50 ml @ 12.5 mls/hr Q8HR IV 05/25/25 02:45 05/29/25 05:24 12.5 MLS/HR Aspirin 81 mg DAILY PO 05/26/25 10:00 05/29/25 10:09 81 MG Atorvastatin Calcium 40 mg HS PO 05/25/25 22:00 05/28/25 22:14 40 MG Albuterol 2.5 mg Q6HPRN PRN NEB 05/25/25 12:15 05/27/25 07:14 2.5 MG Lorazepam 1 mg Q4HPRN PRN PO 05/25/25 13:00 05/29/25 08:37 1 MG Hydralazine HCl 10 mg Q8HPRN PRN IV 05/25/25 13:45 Furosemide 40 mg BIDD IV 05/26/25 18:00 05/29/25 07:39 40 MG Vancomycin HCl 350 ml @ 233.333 mls/hr Q16H IV 05/26/25 20:00 05/28/25 21:09 233.333 MLS/HR Sacubitril/ Valsartan 1 tab DAILY PO 05/28/25 10:45 05/29/25 10:08 1 TAB Spironolactone 25 mg DAILY PO 05/28/25 10:45 05/29/25 10:09 25 MG Laboratory Results Laboratory Tests 05/29/25 05:01 Chemistry Test 05/29/25 05:01 Calcium Level 9.2 mg/dL (8.7-10.4) Urinalysis Test 05/25/25 14:03 Urine Color Light-yellow (Yellow) Urine Clarity Clear (Clear) Urine pH 6.0 (5.0-9.0) Urine Specific [place] 1.014 (1.001-1.035) Urine Protein Negative (Negative) Urine Ketones Negative (Negative) Urine Blood Negative /uL (Negative) Urine Nitrite Negative (Negative) Urine Bilirubin Negative (Negative) Urine Urobilinogen Normal mg/dL (Negative) Urine Leukocyte Esterase Negative /uL (Negative) Urine RBC <1 /hpf (0 - 3) Urine Microscopic WBC < 1 /HPF (0-3) Urine Squamous Epithelial Cells None seen /hpf (<5) Urine Bacteria None seen /hpf (None Seen) Urine Glucose Normal mg/dL (Normal) Microbiology Microbiology Date/Time Source Procedure Growth Status 05/25/25 08:47 Sputum Gram Stain - Final Complete 05/25/25 08:47 Respiratory Culture - Final Escherichia coli Complete Assessment/Plan Assessment/Plan #acute hypoxic respiratory failure: Due to congestive heart failure, patient now off BiPAP #hypertensive urgency : Presented with 180/90, started the patient on nifedipine blood pressure is improving, check for HGB A1c, target blood pressure 140/90 as per aha/ ACC guidelines. 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 Waiting for echo to be done, IV Lasix to continue for now, salt and fluid restriction, start GDM T as tolerated. cardiomegaly Noted in CXR. #Electrolyte imbalance with Multiple PVCs: Continue the patient on telemetry, check for electrolytes, keep on telemetry, where QTC prolongation medication avoidpirin torvastatin. #Possible COPD: As needed albuterol inhaler Continuing current management. Ultrasound artery and venous negative for DVT or stenosis. Continuing with IV Lasix Replace electrolytes as needed Continuing to encouraged the patient to be out of bed and ambulate if tolerated. Echo showed: Dilated cardiac chambers. Global hypokinesis of all cardiac chambers, LV EF is 25%, normal valves, moderate degree mitral regurgitation, no effusion. I will start the patient on Entresto and also was spironolactone. Discussed with patient and at bedside. The patient admitted that he used methamphetamine. And he said he will change his lifestyle now to get better. 05/29:Planning to discharge patient today, however, when we took he off oxygen, he desat to 80%. ABG at room air show PO2 46.2, SO2 81.6. The patient qualify for home oxygen. The patient on 3 L NC continuously to keep SO2 greater than 92%. So I will order 3 L NC oxygen continuously for home. I will discharge the patient when oxygen delivery to him. This medical document was created using an electronic medical record system with [employer] direct computerized dictation system. Although this document has been carefully reviewed, there may still be some phonetic and typographical errors. These areas are purely typographical due to imperfections of the software programs, and do not reflect any compromise in the patient's medical care. Plan discussed with: Patient, Spouse My Orders Orders - MARIAJOSE MORA MD Procedure Category Date Status Time Sacubitril-Valsartan PHA 05/28/25 In Process (Entresto 24-26 Mg 10:45 Spironolactone PHA 05/28/25 In Process (Aldactone) 10:45 Date of Service: May 29, 2025 Billing Provider: MARIAJOSE MORA MD Common Visit Codes: [id number] INP/OBS CARE(HIGH) MARIAJOSE MORA MD May 29, 2025 10:35
[2025-05-29] MEDS ORDERED: ASPI-325 PO (11:47)
[2025-05-29] MEDS ORDERED: SPIR25TA PO (11:47)
[2025-05-29] MEDS ORDERED: SACU1TAB PO (11:47)
[2025-05-29] MEDS ORDERED: FURO1TAB31 PO (11:47)
--- NOTE | 2025-05-29 11:49 | DVHDS2 ---
Discharge Summary Date of Admission May 24, 2025 at 22:32 Date of Discharge: May 29, 2025 Labs/Diagnostic Data: Laboratory Results Test 05/29/25 05:01 05/28/25 02:45 05/26/25 08:06 05/26/25 01:44 White Blood Count 13.2 10^3/uL (4.4-10.8) Red Blood Count 5.24 10^6/uL (4.5-5.90) Hemoglobin 16.6 g/dL (13.5-17.5) Hematocrit 49.6 % (41.0-53.0) Mean Corpuscular Volume 94.7 fL (80.0-100.0) Mean Corpuscular Hemoglobin 31.6 pg (28.0-32.0) Mean Corpuscular Hemoglobin Concent 33.4 g/dL (32.0-36.0) Red Cell Distribution Width 15.7 % (11.8-14.3) Platelet Count 308 10^3/uL (140-450) Mean Platelet Volume 9.1 fL (6.9-10.8) Neutrophils (%) (Auto) 83.2 % (37.0-80.0) Lymphocytes (%) (Auto) 6.4 % (10.0-50.0) Monocytes (%) (Auto) 9.4 % (0.0-12.0) Eosinophils (%) (Auto) 0.8 % (0.0-7.0) Basophils (%) (Auto) 0.2 % (0.0-2.0) Neutrophils # (Auto) 11.0 10 ^3/uL (1.6-8.6) Lymphocytes # (Auto) 0.8 10 ^3/uL (0.4-5.4) Monocytes # (Auto) 1.2 10 ^3/uL (0-1.3) Eosinophils # (Auto) 0.1 10 ^3/uL (0-0.8) Basophils # (Auto) 0 10 ^3/uL (0-0.2) Nucleated Red Blood Cells 0.0 % Sodium Level 140 mmol/L (136-145) Potassium Level 3.4 mmol/L (3.5-5.1) Chloride Level 97 mmol/L (98-107) Carbon Dioxide Level 35 mmol/L (20-31) Anion Gap 8 (5-15) Blood Urea Nitrogen 16 mg/dL (9-23) Creatinine 0.92 mg/dL (0.700-1.30) Glomerular Filtration Rate Calc 93 mL/min (>90) BUN/Creatinine Ratio 17.4 (10.0-20.0) Serum Glucose 115 mg/dL (74-106) Calcium Level 9.2 mg/dL (8.7-10.4) Vancomycin Level Trough 13.2 ug/mL (5-10) Blood Gas Specimen Type Arterial Blood Gas Sample Site Right radial Blood Gas Patient Temperature 37.0 Arterial Blood Date Drawn [id number] Arterial Blood pH 7.354 (7.350-7.450) Arterial Blood Partial Pressure CO2 61.7 mmHg (35.0-48.0) Arterial Blood Partial Pressure O2 67.7 mmHg (83.0-108.0) Arterial Blood HCO3 33.6 mmol/L (21.0-28.0) Arterial Blood Oxygen Saturation 91.8 % (94.0-98.0) Arterial Blood Base Excess 5.7 mmol/L (-2.0-3.0) Arterial Blood Oxyhemoglobin 90.6 % (94.0-98.0) Arterial Blood Carboxyhemoglobin 1.0 % (0.5-1.5) Arterial Blood Methemoglobin 0.3 % (0.0-1.5) Brock Test Yes Blood Gas Total Hemoglobin 16.10 g/dL (13.5-17.5) Blood Gas Set Respiration Rate 12.0 Blood Gas Modality Mask - bipap FiO2 % 40.0 Blood Gas EPAP 5 Blood Gas IPAP 12 Blood Gas Critical Value Read Back Yes Blood Gas Notified Whom Md carlee v Blood Gas Notified Time [id number] Blood Gas Notified By Batcher Operator kasie lopez Influenza Type A Antigen Negative (Negative) Influenza Type B Antigen Negative (Negative) SARS-CoV-2 Antigen (Rapid) Negative (NEGATIVE) Test 05/25/25 20:06 05/25/25 14:03 05/25/25 05:54 05/24/25 16:04 Iron Level 36 ug/dL (65-175) Total Iron Binding Capacity 404 ug/dL (250-425) Percent Iron Saturation 8.9 % (20-55) Ferritin 183.4 ng/mL (22-322) Plasma/Serum Blood Alcohol < 3.0 mg/dL (<10) Urine Color Light-yellow (Yellow) Urine Clarity Clear (Clear) Urine pH 6.0 (5.0-9.0) Urine Specific [place] 1.014 (1.001-1.035) Urine Protein Negative (Negative) Urine Ketones Negative (Negative) Urine Blood Negative /uL (Negative) Urine Nitrite Negative (Negative) Urine Bilirubin Negative (Negative) Urine Urobilinogen Normal mg/dL (Negative) Urine Leukocyte Esterase Negative /uL (Negative) Urine RBC <1 /hpf (0 - 3) Urine Microscopic WBC < 1 /HPF (0-3) Urine Squamous Epithelial Cells None seen /hpf (<5) Urine Bacteria None seen /hpf (None Seen) Urine Glucose Normal mg/dL (Normal) Urine Opiates Screen Neg (NEGATIVE) Urine Fentanyl Screen Neg (NEGATIVE) Urine Barbiturates Screen Neg (NEGATIVE) Urine Phencyclidine Screen Neg (NEGATIVE) Urine Amphetamines Screen Neg (NEGATIVE) Urine Benzodiazepines Screen Neg (NEGATIVE) Urine Cocaine Screen Neg (NEGATIVE) Urine Cannabinoids Screen Pos (NEGATIVE) Lactic Acid Level 1.2 mmol/L (0.4-2.0) Troponin I High Sensitivity 83 ng/L (</=54) Test 05/24/25 12:55 B-Type Natriuretic Peptide 1804.22 pg/mL (0-100) Other Laboratory Tests 05/29/25 05:01 Final Diagnosis/Problems List ACUTE RESPIRATORY FAILURE Discharge Disposition: Home Discharge Instruct/Medications Diet: Cardiac 2g Na,low cholest Activity: No Restrictions, As Tolerated Follow Up/Referral: PCP 1-2 WEEKS [facility] PER SCHEDULE Medications: SEE MED LIST Scheduled Aspirin (Aspirin Low Dose), 81 MG PO DAILY Azithromycin (Zithromax Tablet), 250 MG PO DAILY Furosemide (Lasix), 40 MG PO DAILY Sacubitril-Valsartan (Entresto 24-26 mg), 1 TAB PO DAILY Spironolactone (Aldactone), 25 MG PO DAILY Discharge Statement: "Patient was advised to return to the ER or call 911 if any headaches, dizziness, shortness of breath, chest pain, abdominal pain, bleeding, fevers, or worsening of medical condition. Patient was counseled about treatment plan, medications, possible side effects, patientverbalized understanding. All questions were answered to the best of my ability. This discharge took greater then 30 minutes in planning, reviewing documentation, counseling the patient, and discussing with other team members." ASSESSMENT ASSESSMENT Assessment ACUTE RESPIRATORY FAILURE MARIAJOSE MORA MD May 29, 2025 11:49
[2025-05-29 12:09] LABS: Base Excess 8.5 mmol/L (-2.0-3.0)
[2025-05-29] MEDS ORDERED: AZIT-185 PO (21:18)
[2025-05-30 00:47] VITALS: PULSE 85; O2SAT 97
[2025-05-30 01:00] VITALS: BP 117/80; PULSE 92; RESP 20; TEMP 98; O2SAT 95
[2025-05-30 05:00] VITALS: BP 130/98; PULSE 94; RESP 20; TEMP 98.1; O2SAT 95
[2025-05-30 06:57] LABS: Hematocrit 48.7 % (41.0-53.0); Hemoglobin 16.6 g/dL (13.5-17.5); Mean Corpuscular Hemoglobin 32.3 pg (28.0-32.0); Mean Corpuscular Volume 94.5 fL (80.0-100.0); Nucleated Red Blood Cells % 0.0 %
[2025-05-30 07:04] LABS: Anion Gap 7 (5-15); Potassium 3.9 mmol/L (3.5-5.1); Sodium 142 mmol/L (136-145)
[2025-05-30 07:05] LABS: Calcium 9.9 mg/dL (8.7-10.4)
[2025-05-30 07:10] LABS: BUN/Creatinine Ratio 14.0 (10.0-20.0); Blood Urea Nitrogen 15 mg/dL (9-23)
[2025-05-30 07:23] LABS: Chloride 95 mmol/L (98-107); Glucose 111 mg/dL (74-106)
[2025-05-30 07:29] LABS: Carbon Dioxide 40 mmol/L (20-31)
[2025-05-30 09:00] VITALS: BP 143/95; PULSE 95; RESP 20; TEMP 98; O2SAT 98
--- NOTE | 2025-05-30 11:49 | DVHDS2 ---
Discharge Summary Date of Admission May 24, 2025 at 22:32 Date of Discharge: May 30, 2025 Admitting Diagnosis #acute hypoxic respiratory failure #hypertensive urgency #Type 2 NSTEMI likely demand ischemia mediated secondary due to hypertensive urgency/emergency #Likely CHF exacerbation, #Electrolyte imbalance with Multiple PVCs #Possible COPD Labs/Diagnostic Data: Laboratory Results Test 05/30/25 06:10 05/29/25 12:03 05/28/25 02:45 05/26/25 08:06 White Blood Count 12.2 10^3/uL (4.4-10.8) Red Blood Count 5.15 10^6/uL (4.5-5.90) Hemoglobin 16.6 g/dL (13.5-17.5) Hematocrit 48.7 % (41.0-53.0) Mean Corpuscular Volume 94.5 fL (80.0-100.0) Mean Corpuscular Hemoglobin 32.3 pg (28.0-32.0) Mean Corpuscular Hemoglobin Concent 34.2 g/dL (32.0-36.0) Red Cell Distribution Width 15.8 % (11.8-14.3) Platelet Count 338 10^3/uL (140-450) Mean Platelet Volume 9.0 fL (6.9-10.8) Neutrophils (%) (Auto) 80.9 % (37.0-80.0) Lymphocytes (%) (Auto) 7.3 % (10.0-50.0) Monocytes (%) (Auto) 10.0 % (0.0-12.0) Eosinophils (%) (Auto) 1.4 % (0.0-7.0) Basophils (%) (Auto) 0.4 % (0.0-2.0) Neutrophils # (Auto) 9.9 10 ^3/uL (1.6-8.6) Lymphocytes # (Auto) 0.9 10 ^3/uL (0.4-5.4) Monocytes # (Auto) 1.2 10 ^3/uL (0-1.3) Eosinophils # (Auto) 0.2 10 ^3/uL (0-0.8) Basophils # (Auto) 0 10 ^3/uL (0-0.2) Nucleated Red Blood Cells 0.0 % Sodium Level 142 mmol/L (136-145) Potassium Level 3.9 mmol/L (3.5-5.1) Chloride Level 95 mmol/L (98-107) Carbon Dioxide Level 40 mmol/L (20-31) Anion Gap 7 (5-15) Blood Urea Nitrogen 15 mg/dL (9-23) Creatinine 1.07 mg/dL (0.700-1.30) Glomerular Filtration Rate Calc 77 mL/min (>90) BUN/Creatinine Ratio 14.0 (10.0-20.0) Serum Glucose 111 mg/dL (74-106) Calcium Level 9.9 mg/dL (8.7-10.4) Blood Gas Specimen Type Arterial Blood Gas Sample Site Right radial Blood Gas Patient Temperature 37.0 Arterial Blood Date Drawn Arterial Blood pH 7.443 (7.350-7.450) Arterial Blood Partial Pressure CO2 51.7 mmHg (35.0-48.0) Arterial Blood Partial Pressure O2 46.2 mmHg (83.0-108.0) Arterial Blood HCO3 34.6 mmol/L (21.0-28.0) Arterial Blood Oxygen Saturation 81.6 % (94.0-98.0) Arterial Blood Base Excess 8.5 mmol/L (-2.0-3.0) Arterial Blood Oxyhemoglobin 80.6 % (94.0-98.0) Arterial Blood Carboxyhemoglobin 0.9 % (0.5-1.5) Arterial Blood Methemoglobin 0.3 % (0.0-1.5) Brock Test Yes Blood Gas Total Hemoglobin 17.00 g/dL (13.5-17.5) Blood Gas Modality Room air FiO2 % 21.0 Blood Gas Critical Value Read Back yes Blood Gas Notified Whom Blood Gas Notified Time [id number] Blood Gas Notified By [facility] yvette Vancomycin Level Trough 13.2 ug/mL (5-10) Blood Gas Set Respiration Rate 12.0 Blood Gas EPAP 5 Blood Gas IPAP 12 Test 05/26/25 01:44 05/25/25 20:06 05/25/25 14:03 05/25/25 05:54 Influenza Type A Antigen Negative (Negative) Influenza Type B Antigen Negative (Negative) SARS-CoV-2 Antigen (Rapid) Negative (NEGATIVE) Iron Level 36 ug/dL (65-175) Total Iron Binding Capacity 404 ug/dL (250-425) Percent Iron Saturation 8.9 % (20-55) Ferritin 183.4 ng/mL (22-322) Plasma/Serum Blood Alcohol < 3.0 mg/dL (<10) Urine Color Light-yellow (Yellow) Urine Clarity Clear (Clear) Urine pH 6.0 (5.0-9.0) Urine Specific [place] 1.014 (1.001-1.035) Urine Protein Negative (Negative) Urine Ketones Negative (Negative) Urine Blood Negative /uL (Negative) Urine Nitrite Negative (Negative) Urine Bilirubin Negative (Negative) Urine Urobilinogen Normal mg/dL (Negative) Urine Leukocyte Esterase Negative /uL (Negative) Urine RBC <1 /hpf (0 - 3) Urine Microscopic WBC < 1 /HPF (0-3) Urine Squamous Epithelial Cells None seen /hpf (<5) Urine Bacteria None seen /hpf (None Seen) Urine Glucose Normal mg/dL (Normal) Urine Opiates Screen Neg (NEGATIVE) Urine Fentanyl Screen Neg (NEGATIVE) Urine Barbiturates Screen Neg (NEGATIVE) Urine Phencyclidine Screen Neg (NEGATIVE) Urine Amphetamines Screen Neg (NEGATIVE) Urine Benzodiazepines Screen Neg (NEGATIVE) Urine Cocaine Screen Neg (NEGATIVE) Urine Cannabinoids Screen Pos (NEGATIVE) Lactic Acid Level 1.2 mmol/L (0.4-2.0) Test 05/24/25 16:04 05/24/25 12:55 Troponin I High Sensitivity 83 ng/L (</=54) B-Type Natriuretic Peptide 1804.22 pg/mL (0-100) Other Laboratory Tests 05/30/25 06:10 Brief Hx & Hospital Course: This is a 65 years old male with past medical history of hypertension, diabetes type 2, stage IV oral cancer, congestive heart failure come to emergency department because of worsening shortness for breath. He denied any chills, fever, nausea, vomiting or diarrhea. He denied any chest pain had recent injury or sick contact. He has increased shortness for breath five day prior to this admission associated with bilateral lower extremity edema and also his leg collar change to more purplish. The patient was admitted. The patient's echo was done. Showed: Dilated all cardiac chambers, global hypokinesis of all cardiac chambers, LVEF 25%, normal valves, moderate degree of mitral regurgitation, no effusions. The patient was put on BiPAP. The patient also was put on Lasix 40 mg IV b.i.d.. Ultrasound bilateral lower extremity to rule out DVT is negative. Ultrasound bilateral lower extremity artery showed no stenosis. His edema improved. Patient was on oxygen to keep saturation oxygen above 92%. ABG was done showed the patient a P oxygen at 46.2 and saturation oxygen at 81.6. The patient was on 3 L of nasal cannula continuously. The patient also started on Entresto and spironolactone. The patient is able to tolerate it The patient also will be discharged with aspirin, Lasix, and Z-Fabiano. . We will arrange home oxygen today and we will discharge the patient home today. The patient needs to follow up with primary care physician 1-2 weeks. Follow up with government minister per schedule. The patient need to stop using methamphetamine. The patient verbally understand. Explained to the patient in length with the methamphetamine that cause heart failure. Activity as tolerated. Diet low-salt low-cholesterol diet. Physical exam: HEENT: Normocephalic atraumatic pupils equal react to light and accommodation. Extraocular muscles intact, conjunctiva pink, oropharynx moist, no thrush, no exudate. Lymphatic: No lymphadenopathy Cardiovascular exam: S1, S2 was heard. No murmurs, rubs, gallops Lung: Clear on auscultation bilaterally, no wheeze, rale, rhonchi. GI: Abdominal soft, nondistended, nontenderness, positive bowel sounds. Extremity: No crepitus, cyanosis, edema. Pedal pulses present bilateral. Full range of motion. Skin: Normal turgor, no rash. Psych: Alert, oriented x3. Neurology: No focal deficits, cranial nerve II to XII grossly intact. Condition at Discharge: Stable Final Diagnosis/Problems List #acute hypoxic respiratory failure due to congestive heart failure exacerbation #hypertensive urgency #Type 2 NSTEMI likely demand ischemia mediated secondary due to hypertensive urgency/emergency # biventricular CHF exacerbation, #Electrolyte imbalance with Multiple PVCs # COPD # cardiomyopathy with bilateral ventricle enlargement # methamphetamine abuse Discharge Disposition: Home Discharge Instruct/Medications Diet: Cardiac 2g Na,low cholest Activity: No Restrictions, As Tolerated Follow Up/Referral: PCP 1-2 WEEKS [employer] PER SCHEDULE Medications: SEE MED LIST Scheduled Aspirin (Aspirin Low Dose), 81 MG PO DAILY Azithromycin (Zithromax Tablet), 250 MG PO DAILY Furosemide (Lasix), 40 MG PO DAILY Sacubitril-Valsartan (Entresto 24-26 mg), 1 TAB PO DAILY Spironolactone (Aldactone), 25 MG PO DAILY Discharge Statement: "Patient was advised to return to the ER or call 911 if any headaches, dizziness, shortness of breath, chest pain, abdominal pain, bleeding, fevers, or worsening of medical condition. Patient was counseled about treatment plan, medications, possible side effects, patientverbalized understanding. All questions were answered to the best of my ability. This discharge took greater then 30 minutes in planning, reviewing documentation, counseling the patient, and discussing with other team members." ASSESSMENT ASSESSMENT Assessment ACUTE RESPIRATORY FAILURE Date of Service: May 30, 2025 Billing Provider: MARIAJOSE MORA MD Common Visit Codes: 98966-MZA/OBS DISCH DAY >30min MARIAJOSE MORA MD May 30, 2025 11:49
== END 2025-05-30 10:30 | disposition home or self-care (01) | DRG 280 ==
LOC: ER 12:30 → OVERFLOW 22:32 → TELE-CENTR 23:56
PROVIDERS: ADMIT Internal Medicine; ATTEND Internal Medicine
PROC: 5A09357 Assistance with Respiratory Ventilation, Less than 24 Consecutive Hours, Continuous Positive Airway Pressure (ICD-10-PCS; principal; 2025-05-26)
PROC: 5A09357 Assistance with Respiratory Ventilation, Less than 24 Consecutive Hours, Continuous Positive Airway Pressure (ICD-10-PCS; 2025-05-27)
PROC: 5A09357 Assistance with Respiratory Ventilation, Less than 24 Consecutive Hours, Continuous Positive Airway Pressure (ICD-10-PCS; 2025-05-28)
PROC: 5A09357 Assistance with Respiratory Ventilation, Less than 24 Consecutive Hours, Continuous Positive Airway Pressure (ICD-10-PCS; 2025-05-29)
PROC: 5A09357 Assistance with Respiratory Ventilation, Less than 24 Consecutive Hours, Continuous Positive Airway Pressure (ICD-10-PCS; 2025-05-30)
DX: I11.0 Hypertensive heart disease with heart failure (principal); J96.01 Acute respiratory failure with hypoxia; I21.A1 Myocardial infarction type 2; I42.9 Cardiomyopathy, unspecified; I16.0 Hypertensive urgency; I50.9 Heart failure, unspecified; I50.82 Biventricular heart failure; Z20.822 Contact with and (suspected) exposure to COVID-19; I34.0 Nonrheumatic mitral (valve) insufficiency; F15.10 Other stimulant abuse, uncomplicated; E11.9 Type 2 diabetes mellitus without complications; J44.9 Chronic obstructive pulmonary disease, unspecified; E87.8 Other disorders of electrolyte and fluid balance, not elsewhere classified; I49.3 Ventricular premature depolarization; Z85.819 Personal history of malignant neoplasm of unspecified site of lip, oral cavity, and pharynx
CPT/HCPCS: 36415; 36600; 71045; 80048; 80202; 80307; 80320; 81001; 82728; 82805; 83540; 83550; 83605; 83880; 84132; 84484; 85025; 87070; 87077; 87186; 87205; 87426; 87804; 93005; 93306; 93925; 93970; 94640; 94660; 96374; G0378; J0692